=== PATIENT | female | born 1940 | race Caucasian/White ===

== ENCOUNTER → 2016-11-26 | Outpatient (CLI) | payer OTHER, MEDICARE ==
[~2016-11-26] MED LIST: ACTONEL150 MG PO; ASPIRIN81 M1 PO; CALTRATE 6001 TABLET PO; LIPITOR10 MG PO; NORVASC5 MG PO
== END | disposition home or self-care (01) ==
LOC: RAD 12:52
DX: M71.22 Synovial cyst of popliteal space [Baker], left knee (principal); M79.89 Other specified soft tissue disorders
CPT/HCPCS: 93971